=== PATIENT | male | born 1960 | race Caucasian/White ===

== ENCOUNTER → 2021-05-21 | Day surgery (SDC) | payer MEDICARE ==
[~2021-05-21] VITALS: Ht 185.4 cm; Wt 103.0 kg
[~2021-05-21] MED LIST: AMLODIPINE BESY10 MG PO; ASPIRIN EC81 MG PO; CARVEDILOL6.25 MG PO; HYDROCODON-ACE1 EAC2 PO; HYZAAR 100-12.1 EACH PO; ISOSORBIDE MONO60 MG PO; LANTUS100 UNIT/1 SQ; METFORMIN HCL1000 MG PO; NITROGLYCERIN0.4 MG SL; NOVOLOG SQ; PROTONIX40 MG PO; RANOLAZINE ER500 MG PO; SIMVASTATIN40 MG PO
== END | disposition home or self-care (01) ==
LOC: OR 05:06
DX: M70.21 Olecranon bursitis, right elbow (principal); I10 Essential (primary) hypertension; E78.5 Hyperlipidemia, unspecified; E11.9 Type 2 diabetes mellitus without complications; F32.A Depression, unspecified; Z95.1 Presence of aortocoronary bypass graft; Z90.49 Acquired absence of other specified parts of digestive tract; Z79.82 Long term (current) use of aspirin; Z79.84 Long term (current) use of oral hypoglycemic drugs; Z79.4 Long term (current) use of insulin; Z88.6 Allergy status to analgesic agent; Z20.822 Contact with and (suspected) exposure to COVID-19
CPT/HCPCS: 82962; 93005; J0690; J1100; J2001; J2250; J2405; J2704; J3010; J7030; J7120